=== PATIENT | male | born 2000 | race Caucasian/White ===

== ENCOUNTER 2019-08-05 15:14 | Emergency (ER) | payer OTHER ==
[~2019-08-05] VITALS: Wt 81.8 kg
[2019-08-05 15:24] VITALS: TEMP 98.2
[2019-08-05 16:18] VITALS: BP 116/76; PULSE 92
== END 2019-08-05 16:19 | disposition home or self-care (01) ==
LOC: COL.ER 15:14
DX: S93.401A Sprain of unspecified ligament of right ankle, initial encounter (principal); X50.1XXA Overexertion from prolonged static or awkward postures, initial encounter; Y92.39 Other specified sports and athletic area as the place of occurrence of the external cause; Y93.43 Activity, gymnastics